=== PATIENT | female | born 1950 | race Caucasian/White ===

== ENCOUNTER → 2020-04-23 | Outpatient (CLI) | payer MEDICARE, OTHER ==
--- NOTE | 2020-04-23 16:31 | RAD ---
EXAM: Abdomen sonogram. HISTORY: Pain. Elevated liver function laboratory values. TECHNIQUE: Sonographic imaging of the abdomen was performed. COMPARISON: None. FINDINGS: The liver is normal in size. There is hepatic steatosis. No focal hepatic lesion is seen. T here is cholelithiasis. There is no cholecystitis. The pancreas is obscured due to bowel gas. The rig ht kidney is unremarkable. The inferior vena cava is patent. There is a negative sonographic Magaña's sign. IMPRESSION: 1. Hepatic steatosis. 2. Cholelithiasis. Electronically signed by: Demetra Erazo MD (04/23/2020 4:28 PM) [id number]
== END ==
LOC: US 15:02
PROVIDERS: ATTEND Family Medicine
DX: K76.0 Fatty (change of) liver, not elsewhere classified (principal); K80.20 Calculus of gallbladder without cholecystitis without obstruction
CPT/HCPCS: 76705

== ENCOUNTER → 2020-12-24 | Outpatient (CLI) | payer MEDICARE, OTHER ==
--- NOTE | 2020-12-24 16:20 | RAD ---
INDICATION: Screening for osteopenia/osteoporosis. Postmenopausal evaluation. COMPARISON: None. TECHNIQUE: Bone densitometry was performed through the lumbar spine and proximal femur. IMPRESSION: Lumbar Spine: BMD: 0.86 T-Score: -2.7 Range: Osteoporotic Proximal Femur: BMD: 0.76 T-Score: -1.6 Range: Osteopenic World Health Organization Criteria for Bone Density: T-Score: > -1.0: Normal Range < -1.0 to -2.5: Osteopenic Range < -2.5: Osteoporotic Range Electronically signed by: Mata Foster MD (12/24/2020 4:18 PM) [id number]
--- NOTE | 2020-12-26 10:15 | RAD ---
INDICATION : Routine Screening. COMPARISON: [facility] including March 2017 TECHNIQUE: Standard mammogram screening views of the bilateral breasts were obtained with 3D tomosynt hesis. CAD was utilized. FINDINGS: The breasts are heterogenous density. No definite suspicious mass. IMPRESSION: BI-RADS Category 1: Negative. 2: Benign findings. The patient was placed into the recall system with a suggested recall date for follow up imaging. Mammography is the most sensitive method for finding small breast cancers, but it does not detect the m all and is not a substitute for careful clinical examination. A negative mammogram does not negate a clinically suspicious finding and should not result in delay in biopsying a clinically suspicious abnormality. Electronically signed by: Mata Foster MD (12/26/2020 10:13 AM) [id number]
== END ==
LOC: DXRAD 13:24
PROVIDERS: ATTEND Family Medicine
DX: Z12.31 Encounter for screening mammogram for malignant neoplasm of breast (principal); M81.0 Age-related osteoporosis without current pathological fracture; M85.88 Other specified disorders of bone density and structure, other site
CPT/HCPCS: 77063; 77067; 77080